=== PATIENT | male | born 1950 | race Caucasian/White ===

== ENCOUNTER → 2017-10-23 11:04 | Outpatient (CLI) | payer MEDICARE, OTHER, SELFPAY ==
[2017-10-23 12:08] LABS: Add Manual Diff / Slide Review NO; Basophils Percent Auto 0.8 % (0-2); Eosinophils Percent Auto 5.3 % (2-4); Hematocrit 39.3 % (41-53); Hemoglobin 13.4 g/dL (13.5-17.5); Lymphocytes Percent Auto 22.2 % (25-40); Mean Corpuscular HGB Conc 34.1 % (30-36); Mean Corpuscular Hemoglobin 32.6 PG (26-34); Mean Corpuscular Volume 95.4 fL (80-100); Monocytes Percent Auto 6.5 % (3-14); Neutrophils Absolute Auto 3300 /uL (3000-5900); Neutrophils Percent Auto 65.2 % (50-75); Platelet Count 316 X10^3/uL (150-400); Red Blood Cell Count 4.12 X10^6/uL (4.5-5.9); Red Cell Distribution Width 14.8 % (11.6-14.8); White Blood Cell Count 5.1 X10^3/uL (4.5-11.0)
[2017-10-23 12:31] LABS: Alanine Aminotransferase 29 IU/L (21-72); Albumin 4.1 g/dL (3.5-5.0); Albumin Globulin Ratio 1.6 (1.0-2.8); Alkaline Phosphatase 58 U/L (38-126); Aspartate Aminotransferase 22 IU/L (17-59); BUN Creatinine Ratio 16.7 (6-22); Bilirubin Total 0.6 mg/dL (0.2-1.3); Blood Urea Nitrogen 15 mg/dL (9-20); Calcium 9.3 mg/dL (8.4-10.2); Carbon Dioxide 31 mmol/L (22-32); Chloride 102 mmol/L (98-107); Estimated Glomerular Filt Rate > 60.0 mL/min (>60); Globulin 2.5 g/dL (1.7-4.1); Glucose 94 mg/dL (80-110); HEMOLYSIS < 15 (0-50); Sodium 141 mmol/L (137-145); Total Protein 6.6 g/dL (6.3-8.2)
[2017-10-23 12:33] LABS: C-Reactive Protein Quant < 0.5 mg/dL (<1.0)
[2017-10-23 13:03] LABS: Erythrocyte Sedimentation Rate 5 MM/HR (0-15)
== END ==
PROVIDERS: PCP Physician Assistant; Visit Provider Nurse Practitioner
DX: M05.79 Rheumatoid arthritis with rheumatoid factor of multiple sites without organ or systems involvement (principal); Z79.899 Other long term (current) drug therapy
CPT/HCPCS: 36415; 80053; 85025; 85651; 86140

== ENCOUNTER → 2018-01-16 11:56 | Outpatient (CLI) | payer MEDICARE, OTHER, SELFPAY ==
[2018-01-16 12:49] LABS: Add Manual Diff / Slide Review NO; Eosinophils Percent Auto 2.8 % (2-4); Hematocrit 40.2 % (41-53); Hemoglobin 13.5 g/dL (13.5-17.5); Lymphocytes Percent Auto 19.1 % (25-40); Mean Corpuscular HGB Conc 33.5 % (30-36); Mean Corpuscular Hemoglobin 32.3 PG (26-34); Mean Corpuscular Volume 96.5 fL (80-100); Monocytes Percent Auto 5.4 % (3-14); Neutrophils Absolute Auto 4100 /uL (3000-5900); Neutrophils Percent Auto 71.7 % (50-75); Platelet Count 332 X10^3/uL (150-400); Red Blood Cell Count 4.17 X10^6/uL (4.5-5.9); Red Cell Distribution Width 14.7 % (11.6-14.8); White Blood Cell Count 5.7 X10^3/uL (4.5-11.0)
[2018-01-16 13:16] LABS: Erythrocyte Sedimentation Rate 6 MM/HR (0-15)
[2018-01-16 13:29] LABS: Alanine Aminotransferase 26 IU/L (21-72); Albumin 4.1 g/dL (3.5-5.0); Albumin Globulin Ratio 1.6 (1.0-2.8); Alkaline Phosphatase 60 U/L (38-126); Aspartate Aminotransferase 20 IU/L (17-59); Bilirubin Total 0.5 mg/dL (0.2-1.3); Blood Urea Nitrogen 18 mg/dL (9-20); Calcium 9.2 mg/dL (8.4-10.2); Carbon Dioxide 29 mmol/L (22-32); Chloride 103 mmol/L (98-107); Estimated Glomerular Filt Rate > 60.0 mL/min (>60); Globulin 2.6 g/dL (1.7-4.1); Glucose 87 mg/dL (80-110); HEMOLYSIS 15 (0-50); Sodium 142 mmol/L (137-145); Total Protein 6.7 g/dL (6.3-8.2)
[2018-01-16 13:31] LABS: C-Reactive Protein Quant < 0.5 mg/dL (<1.0)
== END ==
PROVIDERS: PCP Physician Assistant; Visit Provider Nurse Practitioner
DX: M05.79 Rheumatoid arthritis with rheumatoid factor of multiple sites without organ or systems involvement (principal); Z79.899 Other long term (current) drug therapy
CPT/HCPCS: 36415; 80053; 85025; 85651; 86140

== ENCOUNTER → 2018-05-01 09:14 | Outpatient (CLI) | payer MEDICARE, OTHER, SELFPAY ==
[2018-05-01 10:55] LABS: Alanine Aminotransferase 26 IU/L (21-72); Albumin 4.3 g/dL (3.5-5.0); Albumin Globulin Ratio 1.3 (1.0-2.8); Alkaline Phosphatase 73 U/L (38-126); Aspartate Aminotransferase 22 IU/L (17-59); Bilirubin Total 0.7 mg/dL (0.2-1.3); Blood Urea Nitrogen 20 mg/dL (9-20); C-Reactive Protein Quant 0.5 mg/dL (<1.0); Carbon Dioxide 28 mmol/L (22-32); Chloride 98 mmol/L (98-107); Estimated Glomerular Filt Rate > 60.0 mL/min (>60); Globulin 3.3 g/dL (1.7-4.1); Glucose 101 mg/dL (80-110); HEMOLYSIS < 15 (0-50); Potassium 4.3 mmol/L (3.4-5.1); Sodium 135 mmol/L (137-145); Total Protein 7.6 g/dL (6.3-8.2)
[2018-05-01 11:00] LABS: Add Manual Diff / Slide Review NO; Basophils Absolute Auto 100 /uL (0-100); Basophils Percent Auto 0.6 % (0-2); Eosinophils Absolute Auto 200 /uL (0-450); Eosinophils Percent Auto 2.2 % (2-4); Hematocrit 43.4 % (41-53); Hemoglobin 14.6 g/dL (13.5-17.5); Lymphocytes Absolute Auto 1200 /uL (1100-4500); Lymphocytes Percent Auto 12.8 % (25-40); Mean Corpuscular HGB Conc 33.6 % (30-36); Mean Corpuscular Hemoglobin 32.4 PG (26-34); Mean Corpuscular Volume 96.5 fL (80-100); Monocytes Absolute Auto 700 /uL (0-900); Monocytes Percent Auto 7.2 % (3-14); Neutrophils Absolute Auto 7000 /uL (1500-7000); Neutrophils Percent Auto 77.2 % (50-75); Platelet Count 325 X10^3/uL (150-400); Red Cell Distribution Width 14.7 % (11.6-14.8)
[2018-05-01 11:24] LABS: Erythrocyte Sedimentation Rate 9 MM/HR (0-15)
== END ==
PROVIDERS: PCP Physician Assistant; Visit Provider Internal Medicine Rheumatology
DX: Z79.899 Other long term (current) drug therapy (principal); M05.79 Rheumatoid arthritis with rheumatoid factor of multiple sites without organ or systems involvement
CPT/HCPCS: 36415; 80053; 85025; 85651; 86140

== ENCOUNTER → 2018-08-06 11:23 | Outpatient (CLI) | payer MEDICARE, SELFPAY ==
[2018-08-06 12:32] LABS: Add Manual Diff / Slide Review NO; Basophils Absolute Auto 100 /uL (0-100); Basophils Percent Auto 1.2 % (0-2); Eosinophils Absolute Auto 200 /uL (0-450); Eosinophils Percent Auto 3.4 % (2-4); Hematocrit 40.8 % (41-53); Hemoglobin 13.8 g/dL (13.5-17.5); Lymphocytes Absolute Auto 1000 /uL (1100-4500); Lymphocytes Percent Auto 17.4 % (25-40); Mean Corpuscular HGB Conc 33.8 % (30-36); Mean Corpuscular Hemoglobin 32.2 PG (26-34); Mean Corpuscular Volume 95.4 fL (80-100); Monocytes Absolute Auto 400 /uL (0-900); Monocytes Percent Auto 6.3 % (3-14); Neutrophils Absolute Auto 4100 /uL (1500-7000); Neutrophils Percent Auto 71.7 % (50-75); Platelet Count 352 X10^3/uL (150-400); Red Blood Cell Count 4.28 X10^6/uL (4.5-5.9); Red Cell Distribution Width 14.9 % (11.6-14.8); White Blood Cell Count 5.7 X10^3/uL (4.5-11.0)
[2018-08-06 12:59] LABS: Alanine Aminotransferase 26 IU/L (21-72); Albumin 4.4 g/dL (3.5-5.0); Albumin Globulin Ratio 1.6 (1.0-2.8); Alkaline Phosphatase 81 U/L (38-126); Aspartate Aminotransferase 28 IU/L (17-59); BUN Creatinine Ratio 22.2 (6-22); Bilirubin Total 0.7 mg/dL (0.2-1.3); Blood Urea Nitrogen 20 mg/dL (9-20); Calcium 9.6 mg/dL (8.4-10.2); Carbon Dioxide 27 mmol/L (22-32); Chloride 102 mmol/L (98-107); Estimated Glomerular Filt Rate > 60.0 mL/min (>60); Globulin 2.8 g/dL (1.7-4.1); Glucose 95 mg/dL (80-110); HEMOLYSIS < 15 (0-50); Potassium 4.9 mmol/L (3.4-5.1); Sodium 137 mmol/L (137-145); Total Protein 7.2 g/dL (6.3-8.2)
[2018-08-06 13:00] LABS: C-Reactive Protein Quant < 0.5 mg/dL (<1.0)
[2018-08-06 13:10] LABS: Erythrocyte Sedimentation Rate 8 MM/HR (0-15)
== END ==
PROVIDERS: PCP Physician Assistant; Visit Provider Internal Medicine Rheumatology
DX: Z79.899 Other long term (current) drug therapy (principal); M05.79 Rheumatoid arthritis with rheumatoid factor of multiple sites without organ or systems involvement
CPT/HCPCS: 36415; 80053; 85025; 85651; 86140

== ENCOUNTER → 2018-10-27 09:32 | Outpatient (CLI) | payer MEDICARE, SELFPAY ==
[2018-10-27 10:58] LABS: Add Manual Diff / Slide Review NO; Basophils Absolute Auto 100 /uL (0-100); Basophils Percent Auto 1.3 % (0-2); Eosinophils Absolute Auto 200 /uL (0-450); Eosinophils Percent Auto 4.2 % (2-4); Hematocrit 39.1 % (41-53); Hemoglobin 13.6 g/dL (13.5-17.5); Lymphocytes Absolute Auto 1000 /uL (1100-4500); Lymphocytes Percent Auto 23.3 % (25-40); Mean Corpuscular HGB Conc 34.8 % (30-36); Mean Corpuscular Hemoglobin 32.9 PG (26-34); Mean Corpuscular Volume 94.6 fL (80-100); Monocytes Absolute Auto 200 /uL (0-900); Monocytes Percent Auto 5.7 % (3-14); Neutrophils Absolute Auto 2700 /uL (1500-7000); Neutrophils Percent Auto 65.5 % (50-75); Platelet Count 259 X10^3/uL (150-400); Red Blood Cell Count 4.13 X10^6/uL (4.5-5.9); Red Cell Distribution Width 14.2 % (11.6-14.8); White Blood Cell Count 4.2 X10^3/uL (4.5-11.0)
[2018-10-27 11:08] LABS: Erythrocyte Sedimentation Rate 7 MM/HR (0-15)
[2018-10-27 11:19] LABS: Alanine Aminotransferase 42 IU/L (21-72); Albumin 4.1 g/dL (3.5-5.0); Albumin Globulin Ratio 1.4 (1.0-2.8); Alkaline Phosphatase 72 U/L (38-126); Aspartate Aminotransferase 35 IU/L (17-59); BUN Creatinine Ratio 23.3 (6-22); Bilirubin Total 0.6 mg/dL (0.2-1.3); Blood Urea Nitrogen 21 mg/dL (9-20); Carbon Dioxide 28 mmol/L (22-32); Chloride 100 mmol/L (98-107); Estimated Glomerular Filt Rate > 60.0 mL/min (>60); Globulin 2.9 g/dL (1.7-4.1); Glucose 100 mg/dL (80-110); HEMOLYSIS < 15 (0-50); Potassium 4.5 mmol/L (3.4-5.1); Sodium 136 mmol/L (137-145)
[2018-10-27 11:21] LABS: C-Reactive Protein Quant < 0.5 mg/dL (<1.0)
== END ==
PROVIDERS: Family Provider Physician Assistant; PCP Physician Assistant; Visit Provider Internal Medicine Rheumatology
DX: M05.79 Rheumatoid arthritis with rheumatoid factor of multiple sites without organ or systems involvement (principal); Z79.899 Other long term (current) drug therapy
CPT/HCPCS: 36415; 80053; 85025; 85651; 86140

== ENCOUNTER → 2018-11-28 09:02 | Outpatient (CLI) | payer MEDICARE, SELFPAY ==
[2018-11-28 10:23] LABS: Add Manual Diff / Slide Review NO; Basophils Absolute Auto 0 /uL (0-100); Basophils Percent Auto 0.9 % (0-2); Eosinophils Absolute Auto 100 /uL (0-450); Eosinophils Percent Auto 2.6 % (2-4); Hematocrit 37.9 % (41-53); Hemoglobin 13.1 g/dL (13.5-17.5); Lymphocytes Absolute Auto 1200 /uL (1100-4500); Lymphocytes Percent Auto 21.8 % (25-40); Mean Corpuscular HGB Conc 34.7 % (30-36); Mean Corpuscular Hemoglobin 32.9 PG (26-34); Mean Corpuscular Volume 94.9 fL (80-100); Monocytes Absolute Auto 400 /uL (0-900); Neutrophils Absolute Auto 3700 /uL (1500-7000); Neutrophils Percent Auto 66.7 % (50-75); Platelet Count 274 X10^3/uL (150-400); Red Blood Cell Count 3.99 X10^6/uL (4.5-5.9); Red Cell Distribution Width 14.4 % (11.6-14.8); White Blood Cell Count 5.5 X10^3/uL (4.5-11.0)
== END ==
PROVIDERS: PCP Physician Assistant; Visit Provider Internal Medicine Rheumatology
DX: D72.819 Decreased white blood cell count, unspecified (principal)
CPT/HCPCS: 36415; 85025

== ENCOUNTER → 2019-01-15 12:46 | Outpatient (CLI) | payer MEDICARE, SELFPAY ==
[2019-01-15 13:21] LABS: Add Manual Diff / Slide Review NO; Basophils Absolute Auto 0 /uL (0-100); Basophils Percent Auto 0.9 % (0-2); Eosinophils Absolute Auto 200 /uL (0-450); Hematocrit 40.8 % (41-53); Lymphocytes Absolute Auto 900 /uL (1100-4500); Lymphocytes Percent Auto 17.2 % (25-40); Mean Corpuscular HGB Conc 34.3 % (30-36); Mean Corpuscular Hemoglobin 33.1 PG (26-34); Mean Corpuscular Volume 96.6 fL (80-100); Monocytes Absolute Auto 400 /uL (0-900); Monocytes Percent Auto 7.2 % (3-14); Neutrophils Absolute Auto 3800 /uL (1500-7000); Neutrophils Percent Auto 71.7 % (50-75); Platelet Count 314 X10^3/uL (150-400); Red Blood Cell Count 4.23 X10^6/uL (4.5-5.9); Red Cell Distribution Width 14.5 % (11.6-14.8); White Blood Cell Count 5.2 X10^3/uL (4.5-11.0)
== END ==
PROVIDERS: Family Provider Physician Assistant; PCP Physician Assistant; Visit Provider Internal Medicine Rheumatology
DX: D72.819 Decreased white blood cell count, unspecified (principal)
CPT/HCPCS: 36415; 85025

== ENCOUNTER → 2019-03-05 09:59 | Outpatient (CLI) | payer MEDICARE, SELFPAY ==
[2019-03-05 10:53] LABS: Add Manual Diff / Slide Review NO; Basophils Absolute Auto 0 /uL (0-100); Basophils Percent Auto 0.9 % (0-2); Eosinophils Absolute Auto 100 /uL (0-450); Eosinophils Percent Auto 2.9 % (2-4); Hematocrit 37.3 % (41-53); Hemoglobin 13.2 g/dL (13.5-17.5); Lymphocytes Absolute Auto 900 /uL (1100-4500); Lymphocytes Percent Auto 19.3 % (25-40); Mean Corpuscular HGB Conc 35.3 % (30-36); Mean Corpuscular Hemoglobin 33.3 PG (26-34); Mean Corpuscular Volume 94.4 fL (80-100); Monocytes Absolute Auto 400 /uL (0-900); Monocytes Percent Auto 7.5 % (3-14); Neutrophils Absolute Auto 3300 /uL (1500-7000); Neutrophils Percent Auto 69.4 % (50-75); Platelet Count 291 X10^3/uL (150-400); Red Blood Cell Count 3.95 X10^6/uL (4.5-5.9); Red Cell Distribution Width 14.2 % (11.6-14.8); White Blood Cell Count 4.8 X10^3/uL (4.5-11.0)
[2019-03-05 11:05] LABS: Alanine Aminotransferase 19 IU/L (<50); Albumin 4.1 g/dL (3.5-5.0); Albumin Globulin Ratio 1.5 (1.0-2.8); Alkaline Phosphatase 69 U/L (38-126); Aspartate Aminotransferase 27 IU/L (17-59); BUN Creatinine Ratio 21.3 (6-22); Bilirubin Total 0.5 mg/dL (0.2-1.3); Blood Urea Nitrogen 17 mg/dL (9-20); Calcium 9.3 mg/dL (8.4-10.2); Carbon Dioxide 28 mmol/L (22-32); Chloride 101 mmol/L (98-107); Estimated Glomerular Filt Rate > 60.0 mL/min (>60); Globulin 2.8 g/dL (1.7-4.1); Glucose 93 mg/dL (80-110); HEMOLYSIS < 15 (0-50); Potassium 4.3 mmol/L (3.4-5.1); Sodium 137 mmol/L (137-145); Total Protein 6.9 g/dL (6.3-8.2)
[2019-03-05 11:07] LABS: Erythrocyte Sedimentation Rate 8 MM/HR (0-15)
[2019-03-05 11:12] LABS: C-Reactive Protein Quant < 0.5 mg/dL (<1.0)
== END ==
PROVIDERS: PCP Physician Assistant; Visit Provider Internal Medicine Rheumatology
DX: M06.9 Rheumatoid arthritis, unspecified (principal)
CPT/HCPCS: 36415; 80053; 85025; 85651; 86140

== ENCOUNTER → 2019-05-08 09:43 | Outpatient (CLI) | payer MEDICARE, SELFPAY ==
[2019-05-08 10:06] LABS: Add Manual Diff / Slide Review NO; Basophils Absolute Auto 0 /uL (0-100); Eosinophils Absolute Auto 200 /uL (0-450); Eosinophils Percent Auto 4.6 % (2-4); Hematocrit 39.8 % (41-53); Hemoglobin 13.5 g/dL (13.5-17.5); Lymphocytes Absolute Auto 1000 /uL (1100-4500); Mean Corpuscular Hemoglobin 32.6 PG (26-34); Monocytes Absolute Auto 300 /uL (0-900); Monocytes Percent Auto 7.4 % (3-14); Neutrophils Absolute Auto 2900 /uL (1500-7000); Platelet Count 276 X10^3/uL (150-400); Red Blood Cell Count 4.14 X10^6/uL (4.5-5.9); Red Cell Distribution Width 14.1 % (11.6-14.8); White Blood Cell Count 4.5 X10^3/uL (4.5-11.0)
[2019-05-08 10:22] LABS: Alanine Aminotransferase 17 IU/L (<50); Albumin 4.3 g/dL (3.5-5.0); Albumin Globulin Ratio 1.4 (1.0-2.8); Alkaline Phosphatase 72 U/L (38-126); Aspartate Aminotransferase 25 IU/L (17-59); BUN Creatinine Ratio 25.9 (6-22); Bilirubin Total 0.5 mg/dL (0.2-1.3); Blood Urea Nitrogen 22 mg/dL (9-20); C-Reactive Protein Quant < 0.5 mg/dL (<1.0); Calcium 9.2 mg/dL (8.4-10.2); Carbon Dioxide 28 mmol/L (22-32); Chloride 102 mmol/L (98-107); Estimated Glomerular Filt Rate > 60.0 mL/min (>60); Globulin 3.1 g/dL (1.7-4.1); Glucose 102 mg/dL (80-110); HEMOLYSIS < 15 (0-50); Potassium 4.3 mmol/L (3.4-5.1); Sodium 136 mmol/L (137-145); Total Protein 7.4 g/dL (6.3-8.2)
[2019-05-08 10:23] LABS: Erythrocyte Sedimentation Rate 7 MM/HR (0-15)
== END ==
PROVIDERS: PCP Physician Assistant; Referring Provider Internal Medicine Rheumatology; Visit Provider Internal Medicine Rheumatology
DX: Z79.899 Other long term (current) drug therapy (principal); M05.39 Rheumatoid heart disease with rheumatoid arthritis of multiple sites
CPT/HCPCS: 36415; 80053; 85025; 85651; 86140

== ENCOUNTER → 2019-10-27 11:04 | Outpatient (CLI) | payer MEDICARE, SELFPAY ==
[2019-10-27 13:27] LABS: Add Manual Diff / Slide Review NO; Basophils Absolute Auto 100 /uL (0-100); Basophils Percent Auto 0.9 % (0-2); Eosinophils Absolute Auto 200 /uL (0-450); Eosinophils Percent Auto 3.4 % (2-4); Hematocrit 38.6 % (41-53); Hemoglobin 13.2 g/dL (13.5-17.5); Lymphocytes Absolute Auto 1200 /uL (1100-4500); Lymphocytes Percent Auto 20.1 % (25-40); Mean Corpuscular Volume 96.8 fL (80-100); Monocytes Absolute Auto 400 /uL (0-900); Monocytes Percent Auto 6.5 % (3-14); Neutrophils Absolute Auto 4100 /uL (1500-7000); Neutrophils Percent Auto 69.1 % (50-75); Platelet Count 298 X10^3/uL (150-400); Red Blood Cell Count 3.99 X10^6/uL (4.5-5.9); White Blood Cell Count 5.9 X10^3/uL (4.5-11.0)
[2019-10-27 13:53] LABS: Erythrocyte Sedimentation Rate 7 MM/HR (0-15)
[2019-10-27 14:03] LABS: Alanine Aminotransferase 18 IU/L (<50); Albumin 4.2 g/dL (3.5-5.0); Albumin Globulin Ratio 1.8 (1.0-2.8); Alkaline Phosphatase 86 U/L (38-126); Aspartate Aminotransferase 25 IU/L (17-59); BUN Creatinine Ratio 17.8 (6-22); Bilirubin Total 0.5 mg/dL (0.2-1.3); Blood Urea Nitrogen 18 mg/dL (9-20); Calcium 9.4 mg/dL (8.4-10.2); Carbon Dioxide 30 mmol/L (22-32); Chloride 101 mmol/L (98-107); Estimated Glomerular Filt Rate > 60.0 mL/min (>60); Globulin 2.4 g/dL (1.7-4.1); Glucose 107 mg/dL (80-110); HEMOLYSIS < 15 (0-50); Potassium 4.7 mmol/L (3.4-5.1); Sodium 138 mmol/L (137-145); Total Protein 6.6 g/dL (6.3-8.2)
[2019-10-27 14:09] LABS: C-Reactive Protein Quant < 0.5 mg/dL (<1.0)
== END ==
PROVIDERS: PCP Physician Assistant; Referring Provider Internal Medicine Rheumatology; Visit Provider Internal Medicine Rheumatology
DX: M05.79 Rheumatoid arthritis with rheumatoid factor of multiple sites without organ or systems involvement (principal)
CPT/HCPCS: 36415; 80053; 85025; 85651; 86140

== ENCOUNTER → 2020-01-26 11:47 | Outpatient (CLI) | payer MEDICARE, SELFPAY ==
[2020-01-26 12:30] LABS: Add Manual Diff / Slide Review NO; Basophils Absolute Auto 0 /uL (0-100); Basophils Percent Auto 0.8 % (0-2); Eosinophils Absolute Auto 200 /uL (0-450); Eosinophils Percent Auto 3.4 % (2-4); Hematocrit 41.4 % (41-53); Hemoglobin 13.9 g/dL (13.5-17.5); Lymphocytes Absolute Auto 1300 /uL (1100-4500); Lymphocytes Percent Auto 24.4 % (25-40); Mean Corpuscular HGB Conc 33.6 % (30-36); Mean Corpuscular Hemoglobin 32.8 PG (26-34); Mean Corpuscular Volume 97.6 fL (80-100); Monocytes Absolute Auto 400 /uL (0-900); Monocytes Percent Auto 8.1 % (3-14); Neutrophils Absolute Auto 3500 /uL (1500-7000); Neutrophils Percent Auto 63.3 % (50-75); Platelet Count 313 X10^3/uL (150-400); Red Blood Cell Count 4.24 X10^6/uL (4.5-5.9); Red Cell Distribution Width 14.4 % (11.6-14.8); White Blood Cell Count 5.5 X10^3/uL (4.5-11.0)
[2020-01-26 12:53] LABS: Erythrocyte Sedimentation Rate 10 MM/HR (0-15)
[2020-01-26 13:06] LABS: Alanine Aminotransferase 22 IU/L (<50); Albumin 4.5 g/dL (3.5-5.0); Albumin Globulin Ratio 1.5 (1.0-2.8); Alkaline Phosphatase 81 U/L (38-126); Aspartate Aminotransferase 29 IU/L (17-59); BUN Creatinine Ratio 19.8 (6-22); Bilirubin Total 0.6 mg/dL (0.2-1.3); Blood Urea Nitrogen 18 mg/dL (9-20); Calcium 9.3 mg/dL (8.4-10.2); Carbon Dioxide 32 mmol/L (22-32); Chloride 99 mmol/L (98-107); Estimated Glomerular Filt Rate > 60.0 mL/min (>60); Glucose 105 mg/dL (80-110); HEMOLYSIS < 15 (0-50); Potassium 4.1 mmol/L (3.4-5.1); Sodium 136 mmol/L (137-145); Total Protein 7.5 g/dL (6.3-8.2)
[2020-01-26 13:17] LABS: C-Reactive Protein Quant < 0.5 mg/dL (<1.0)
== END ==
PROVIDERS: PCP Physician Assistant; Referring Provider Internal Medicine Rheumatology; Visit Provider Internal Medicine Rheumatology
DX: M05.79 Rheumatoid arthritis with rheumatoid factor of multiple sites without organ or systems involvement (principal)
CPT/HCPCS: 36415; 80053; 85025; 85651; 86140

== ENCOUNTER → 2020-04-23 10:22 | Outpatient (CLI) | payer MEDICARE, SELFPAY ==
[2020-04-23 11:55] LABS: Add Manual Diff / Slide Review NO; Basophils Absolute Auto 100 /uL (0-100); Basophils Percent Auto 0.9 % (0-2); Eosinophils Absolute Auto 200 /uL (0-450); Eosinophils Percent Auto 3.5 % (2-4); Hematocrit 39.6 % (41-53); Hemoglobin 13.4 g/dL (13.5-17.5); Lymphocytes Absolute Auto 1000 /uL (1100-4500); Lymphocytes Percent Auto 16.8 % (25-40); Mean Corpuscular HGB Conc 33.9 % (30-36); Mean Corpuscular Hemoglobin 32.9 PG (26-34); Mean Corpuscular Volume 97.1 fL (80-100); Monocytes Absolute Auto 400 /uL (0-900); Monocytes Percent Auto 7.2 % (3-14); Neutrophils Absolute Auto 4300 /uL (1500-7000); Neutrophils Percent Auto 71.6 % (50-75); Platelet Count 301 X10^3/uL (150-400); Red Blood Cell Count 4.07 X10^6/uL (4.5-5.9); White Blood Cell Count 6.1 X10^3/uL (4.5-11.0)
[2020-04-23 12:22] LABS: Alanine Aminotransferase 20 IU/L (<50); Albumin 4.5 g/dL (3.5-5.0); Albumin Globulin Ratio 1.9 (1.0-2.8); Alkaline Phosphatase 84 U/L (38-126); Aspartate Aminotransferase 29 IU/L (17-59); BUN Creatinine Ratio 21.5 (6-22); Bilirubin Total 0.5 mg/dL (0.2-1.3); Blood Urea Nitrogen 17 mg/dL (9-20); Calcium 9.3 mg/dL (8.4-10.2); Carbon Dioxide 29 mmol/L (22-32); Chloride 101 mmol/L (98-107); Estimated Glomerular Filt Rate > 60.0 mL/min (>60); Globulin 2.4 g/dL (1.7-4.1); Glucose 94 mg/dL (80-110); HEMOLYSIS < 15 (0-50); Potassium 4.4 mmol/L (3.4-5.1); Sodium 136 mmol/L (137-145); Total Protein 6.9 g/dL (6.3-8.2)
[2020-04-23 12:28] LABS: C-Reactive Protein Quant < 0.5 mg/dL (<1.0)
[2020-04-23 12:44] LABS: Erythrocyte Sedimentation Rate 10 MM/HR (0-15)
== END ==
PROVIDERS: PCP Physician Assistant; Referring Provider Internal Medicine Rheumatology; Visit Provider Internal Medicine Rheumatology
DX: M05.79 Rheumatoid arthritis with rheumatoid factor of multiple sites without organ or systems involvement (principal)
CPT/HCPCS: 36415; 80053; 85025; 85651; 86140

== ENCOUNTER 2020-08-21 17:32 | Emergency (ER) | payer MEDICARE, SELFPAY ==
[2020-08-21] VITALS (41 sets, daily range): BP systolic 71–129; BP diastolic 43–76; PULSE 55–81; RESP 15–32; TEMP 36.6; O2SAT 95–100
--- NOTE | 2020-08-21 17:49 | DI.RAD.S_ITS ---
PROCEDURE: XR HIP W PEL IF DONE RT 2V INDICATIONS: fall pain TECHNIQUE: AP pelvis with lateral view(s) of the right hip(s). COMPARISON: [facility], CT, CT ABDOMEN PELVIS W CON, 08/21/2020, 18:25. FINDINGS: Bones: Lucency in the superior aspect of the acetabulum consistent with fracture. This was better seen on the comparison CT. Pelvic ring appears intact. No suspicious bony lesions. Soft tissues: The visualized bowel gas pattern is normal. No suspicious soft tissue calcifications. Partially opacified ureters are noted related to a recent contrast enhanced CT. IMPRESSION: No fracture or dislocation. The right acetabular fracture is not well seen on this radiograph. Dictated by: Lowell Nunez M.D. on 08/21/2020 at 19:07 Approved by: Lowell uNnez M.D. on 08/21/2020 at 19:09
[2020-08-21 17:59] LABS: Add Manual Diff / Slide Review NO; Basophils Absolute Auto 100 /uL (0-100); Basophils Percent Auto 0.6 % (0-2); Eosinophils Absolute Auto 200 /uL (0-450); Hematocrit 39.7 % (41-53); Hemoglobin 13.1 g/dL (13.5-17.5); Lymphocytes Absolute Auto 2000 /uL (1100-4500); Lymphocytes Percent Auto 21.2 % (25-40); Mean Corpuscular HGB Conc 32.9 % (30-36); Mean Corpuscular Hemoglobin 32.1 PG (26-34); Mean Corpuscular Volume 97.7 fL (80-100); Monocytes Absolute Auto 500 /uL (0-900); Monocytes Percent Auto 5.4 % (3-14); Neutrophils Absolute Auto 6500 /uL (1500-7000); Neutrophils Percent Auto 70.8 % (50-75); Platelet Count 296 X10^3/uL (150-400); Red Blood Cell Count 4.06 X10^6/uL (4.5-5.9); Red Cell Distribution Width 14.5 % (11.6-14.8); White Blood Cell Count 9.2 X10^3/uL (4.5-11.0)
[2020-08-21] MEDS: SODIUM CHLORIDE 0.9% 1,000 ML 1000 ML IV (18:05)
[2020-08-21 18:10] LABS: Alanine Aminotransferase 25 IU/L (<50); Albumin Globulin Ratio 1.5 (1.0-2.8); Alkaline Phosphatase 72 U/L (38-126); Aspartate Aminotransferase 32 IU/L (17-59); BUN Creatinine Ratio 22.1 (6-22); Bilirubin Total 0.3 mg/dL (0.2-1.3); Blood Urea Nitrogen 25 mg/dL (9-20); Calcium 9.4 mg/dL (8.4-10.2); Carbon Dioxide 25 mmol/L (22-32); Chloride 105 mmol/L (98-107); Creatine Kinase 165 U/L (55-170); Estimated Glomerular Filt Rate > 60.0 mL/min (>60); Globulin 2.7 g/dL (1.7-4.1); Glucose 111 mg/dL (80-110); HEMOLYSIS < 15 (0-50); Potassium 4.2 mmol/L (3.4-5.1); Sodium 137 mmol/L (137-145); Total Protein 6.7 g/dL (6.3-8.2)
--- NOTE | 2020-08-21 18:10 | DI.CT.S_ITS ---
PROCEDURE: CT ABDOMEN PELVIS W CON INDICATIONS: Fall. Anticoagulated.Abd and low back pain. TECHNIQUE: After the administration of intravenous contrast, axial sections acquired from the lung bases to the pubic symphysis. Coronal and sagittal reformats were performed. For radiation dose reduction, the following was used: automated exposure control, adjustment of mA and/or kV according to patient size. COMPARISON: [facility], CR, XR HIP W PEL IF DONE RT 2V, 08/21/2020, 18:20. FINDINGS: Image quality: Excellent. Lung bases: There is a 4 mm ground-glass nodule in the right middle lobe (series 3, image 4). Bibasilar atelectasis. Small hiatal hernia. Heart: No significant findings. ABDOMEN: Liver: Hepatic hypodensities in liver are most likely cysts. Gallbladder: Unremarkable. Biliary ducts: Unremarkable. Pancreas: Unremarkable. Spleen: Unremarkable. Adrenal Glands: Bilateral adrenal thickening. There is a 1.2 cm left adrenal nodule.. Kidneys and Ureters: There is a large simple appearing cyst in the superior pole of the left kidney measuring 10.4 cm x 9.9 cm x 9.0 cm. Stomach and Bowel: Mild diverticulosis without diverticulitis. Stomach, small bowel loops, and colon are normal in caliber. A large amount of stool in colon. Peritoneum: No abnormal intraperitoneal fluid. No free air. Ventral Wall: No hernias. Abdominal Nodes: No retroperitoneal or mesenteric adenopathy by size criteria. Vessels: Aorta and inferior vena cava are normal in size. Moderate atherosclerotic calcifications. There is a large right common iliac artery aneurysm measuring 3.5 cm in diameter. PELVIS: Pelvic Organs: Prostate is enlarged. Bladder: Bladder wall appears mildly thickened, likely secondary to inadequate distention. Pelvic Nodes: No enlarged lymph nodes. Miscellaneous: There is a right inguinal hernia containing loop of small intestine. Bones: Nondisplaced right acetabular fracture involving the anterior column and the acetabular roof. Degenerative changes in lumbar spine. IMPRESSION: 1. There is a right inguinal hernia containing segment of small intestine. No definitive CT findings to suggest small bowel obstruction. 2. A large simple appearing cyst in the superior pole of the left kidney measuring 10.4 x 9.9 x 9.0 cm. 3. There is a nondisplaced right acetabular fracture involving the anterior column and the acetabular roof. 4. A large right common iliac artery aneurysm measuring 3.5 cm. 5. A 4 mm nodule in the right middle lobe. Please see enclosed follow-up recommendation. 6. No intra-abdominal or pelvic hematoma. 7. A large amount of stool in colon. Fleischner Society criteria for SOLID lung nodule followup. Nodule size (mm)Low-risk patientHigh-risk patient?4No follow-up neededFollow-up at 12 mo; if no change, no further follow-up>[id number] CT at 12 mo; if no change, no further follow-up needed.Initial follow-up CT at 6-12 mo, then 18-24 mo if no change. >6-8Initial follow-up CT at 6-12 mo, then 18-24 mo if no change. Initial follow-up CT at 3-6 mo, then 9-12 mo and 24 mo if no change. >8Follow-up CT at 3, 9, 24 mo. Or PET and/or biopsy.Same as for low-risk pts. Fleischner Society criteria for SUB-SOLID lung nodule followup. Solitary pure ground-glass nodules5 mm or lessNo followup needed. >5 mm3 mo follow-up CT to confirm persistence. Then annual CT for 3 years. Part-solid nodules3 mo follow-up CT to confirm persistence. If persistent with solid component <5 mm, annual CT for at least 3 years. If solid component is 5 mm or more, biopsy or surgical resection. Consider PET-CT for lesions > 10 mm. Multiple sub-solid nodulesPure ground glass nodules [address] at 2 and 4 years. Pure ground glass nodules >5 mm without dominant lesion. [address] to confirm persistence, then annual followup CT for at least 3 years. Dominant nodule(s) with part-solid or solid component. [address] to confirm persistence. If persistent, consider biopsy or surgical resection, tiffanie if lesions have >5 mm solid component. Dictated by: Lowell Nunez M.D. on 08/21/2020 at 18:50 Approved by: Lowell Nunez M.D. on 08/21/2020 at 19:02
--- NOTE | 2020-08-21 18:12 | ED.FALL ---
HPI - Fall General Chief Complaint: Trauma Stated Complaint: Fall, Right Hip Pain Time Seen by Provider: 08/21/20 17:49 Source: patient Mode of arrival: Wheelchair History of Present Illness HPI Narrative: The patient is anticoagulated with Xarelto for paroxysmal AFib. He has also medications for asthma, hyperlipidemia and hypertension. He was standing on a counter at home, working on an air conditioning. He fell backwards to the floor. He landed on the buttock/lumbar area, but the air conditioning unit impacted him on the right anterior hip area. The patient is alert, unclear historian. There was no head, neck, chest or torso injury. He has no chest pain, dyspnea or hemoptysis. He has vague right lower abdominal pain. He has greater right hip and right lower back pain. He has no pain in the extremities, with normal range of motion. Although we, he was ambulatory after the fall. He denies recent illness. Has received COVID-19 vaccine. Related Data Home Medications Medication Instructions Recorded Confirmed methotrexate sodium 2.5 mg tablet 20 mg PO QWEEK #0 tab 12/06/15 05/08/18 diltiazem HCl 120 mg 120 mg PO QDAY #0 10/16/16 05/08/18 capsule,extended release 24 hr (Cartia XT) [FOLIC ACID] 20 mg PO QDAY #0 05/06/17 05/08/18 [VITAMIN D3] 1,000 iu PO QDAY #0 05/06/17 05/08/18 budesonide 90 mcg/actuation breath 1 inhalation INHALATION BID 04/08/18 05/08/18 activated powder inhaler rivaroxaban 20 mg tablet (Xarelto) 20 mg PO DAILY 04/08/18 05/08/18 flecainide 50 mg tablet 50 mg PO Q12H 06/17/19 Previous Rx's Medication Instructions Recorded albuterol sulfate 90 mcg/actuation 2 puff INH SEE INSTRUCTIONS PRN #1 10/22/16 aerosol inhaler (Ventolin HFA) inh atorvastatin 20 mg tablet (Lipitor) 20 mg PO HS #90 tab 10/22/16 lisinopril 10 mg tablet 10 mg PO QDAY #90 tab 05/06/17 Allergies Allergy/AdvReac Type Severity Reaction Status Date / Time No Known Drug Allergies Allergy Unverified 05/08/18 14:15 denies dizziness or syncope Most Recent Cardiac Tests: No Data to Display Review of Systems Constitutional Constitutional: Reports as per HPI Comments: No recent illness. Injuries are focused around the right hip area as described in HPI. Eyes Eyes: Denies change in vision ENT Ears, Nose, Mouth, and Throat: Denies vertigo and Denies dizziness Comments: No head or neck complaints. No head or neck pain. Cardiovascular Cardiovascular: Denies chest pain, Denies syncope, Denies rapid heart rate, Reports lightheadedness and Denies dyspnea Respiratory Respiratory: Denies chest congestion, Denies cough, Denies hemoptysis and Denies dyspnea Gastrointestinal Gastrointestinal: Denies nausea and Denies vomiting Comments: Vague like lower abdominal pain is noted HPI put Genitourinary Comments: No genital injury. Musculoskeletal Comments: Right hip and low back pain. Integumentary/Breasts Skin/Breast: Denies change in pigmentation, Denies rash and Denies sores Neurologic Neurologic: Denies confusion, Denies vertigo, Denies dizziness, Denies syncope, Denies localized weakness and Denies sensory deficit Psychiatric Psychiatric: Denies confusion Hematologic/Lymphatic On Anticoagulants: Yes Allergic/Immunologic Allergic/Immunologic: Reports system reviewed and no additional complaints, except as documented Patient History Family History Father Rheumatoid arthritis, involving unspecified site, unspecified rheumatoid factor presence Gout, unspecified cause, unspecified chronicity, unspecified site Social History Smoking Status: Never smoker Smoking Status: Never smoker Family History Father Rheumatoid arthritis, involving unspecified site, unspecified rheumatoid factor presence Gout, unspecified cause, unspecified chronicity, unspecified site Social History Smoking Status: Never smoker Family History Father Rheumatoid arthritis, involving unspecified site, unspecified rheumatoid factor presence Gout, unspecified cause, unspecified chronicity, unspecified site Social History Smoking Status: Never smoker Exam Initial Vital Signs Initial Vital Signs: Vital Signs Temperature 97.9 F 08/21/20 17:36 Pulse Rate 55 L 08/21/20 17:36 Respiratory Rate 20 08/21/20 17:36 Blood Pressure 71/43 L 08/21/20 17:36 Pulse Oximetry 97 08/21/20 17:36 Const General: cooperative, healthy appearing, comfortable, well groomed and other (Oriented to person, place and time.) [facility] Head: normal to inspection, normocephalic and atraumatic Mouth: oral mucosae normal Eyes General: appearance normal, both eyes and all related structures Neck Neck: normal visual inspection, No lymphadenopathy and No tender Chest Chest: normal inspection of the chest and No tenderness Resp Effort & Inspection: normal respiratory effort Auscultation: clear to auscultation bilaterally Cardio Rate: regular rate Rhythm: regular rhythm Heart Sounds: S1 normal, S2 normal, no gallops and no murmurs GI Inspection: normal to inspection and non-distended Percussion: normal to percussion Auscultation: normal bowel sounds and other (Mild RLQ tenderness. No distension. No guarding rebound. ) Penis: normal penis Scrotum: scrotum normal Back/Spine/Pelvis Back: normal to inspection Cervical Spine: other (Slight tenderness at the right SI joint, no palpable deformity.) Skin General: no rashes or lesions noted Neuro General: patient alert, patient awake, patient oriented x3 and no focal motor deficits Extrem General: normal to inspection Other: Upper extremities are atraumatic. Right hip pain, no palpable deformity. Right hip motion is normal. Left hip is normal. Full range of motion throughout the lower extremities. Lower extremities are neurovascularly intact. Psych Appearance: well kempt Mental Status: mental status grossly normal Course Course Course Narrative: The patient was hypertensive at triage, he has been normotensive since been placed on a gurney in the ER. There is no suggestion of head, neck or torso injury. Pain is focused to landing on his buttocks, with injury to the right hip region. The initial x-ray of the right hip did not well revealed the acetabular fracture that was later noted. Due to his anticoagulation, and the concern for internal bleeding with the right pelvic discomfort CT was obtained. There is a nondisplaced right acetabular fracture, no AC hematoma or active bleeding. Additional findings include a right common iliac artery aneurysm 3.5 cm, a large right renal cyst, right inguinal hernia, and a large right renal cyst, and a RML pulmonary nodule. Specifically, there is no evidence of hematoma in the abdomen or pelvis. Initial CBC is repeated, blood counts are stable. His vitals are stable. He has required medications for pain. He has been kept quietly in bed until CT results were reviewed with Radiology, clearing concerns for active bleeding or hematoma formation. The patient's manage was discussed with the local on-call orthopedic surgeon, his needs are beyond this facility. Care was discussed with Dr. Martines, he ER at [facility]. The patient has been accepted in transfer to [facility]. Labs and radiology data has been forwarded. Orders Ordered: ED Orders 08/21/20 17:49 XR hip w pel if done RT 2V Stat 08/21/20 17:50 Complete Blood Count AUTO DIFF Stat Comprehensive Metabolic Panel Stat Troponin & CK Cardiac Panel Stat Type and Screen Stat 08/21/20 17:58 EKG-12 Lead Stat 08/21/20 18:05 PT [Prothrombin Time INR] Stat Partial Thromboplastin Time Stat 08/21/20 18:10 CT abdomen pelvis w con Stat 08/21/20 19:00 Complete Blood Count AUTO DIFF Stat 08/21/20 19:12 COVID19 -Nasal swab/Pre-Proc Stat Urine Culture Stat Urine Microscopic Stat Acetaminophen (Acetaminophen 325 Mg Tablet) 650 mg PO Q4HR PRN PRN Reason: Fever/Mild Pain (1-3) Last Admin: 08/21/20 20:26 Dose: 650 mg Documented by: JENELLE Sodium Chloride (Normal Saline 0.9%) 1,000 mls @ 150 mls/hr IV CONT WARREN Last Admin: 08/21/20 19:05 Dose: 150 mls/hr Documented by: WINIFRED Discontinued Medications Fentanyl (Fentanyl 100 Mcg/2 Ml Inj) 50 mcg IV NOW ONE Stop: 08/21/20 18:46 Last Admin: 08/21/20 18:55 Dose: 50 mcg Documented by: WINIFRED Sodium Chloride (Normal Saline 0.9%) 1,000 mls @ 1,000 mls/hr IV BOLUS ONE Stop: 08/21/20 18:48 Last Infusion: 08/21/20 19:06 Dose: 0 mls/hr Documented by: Admin: 08/21/20 18:05 Dose: 1,000 mls/hr Documented by: WINIFRED Vital Signs Vital signs: Vital Signs - 8 hr 08/21/20 17:36 08/21/20 17:54 08/21/20 17:55 Temperature 97.9 F Pulse Rate 55 L 59 L 57 L Respiratory Rate 20 24 21 Blood Pressure 71/43 L 101/59 L 101/59 L Pulse Oximetry 97 99 100 08/21/20 18:00 08/21/20 18:05 08/21/20 18:10 Temperature Pulse Rate 60 59 L 57 L Respiratory Rate 24 22 21 Blood Pressure 102/64 98/60 101/63 Pulse Oximetry 100 100 100 08/21/20 18:15 08/21/20 18:30 08/21/20 18:32 Temperature Pulse Rate 60 59 L 62 Respiratory Rate 22 17 Blood Pressure 122/67 Pulse Oximetry 95 98 08/21/20 18:35 08/21/20 18:40 08/21/20 18:45 Temperature Pulse Rate 62 61 61 Respiratory Rate 24 22 20 Blood Pressure 102/59 L Pulse Oximetry 98 98 98 08/21/20 18:50 08/21/20 18:55 08/21/20 19:00 Temperature Pulse Rate 65 65 64 Respiratory Rate 15 15 Blood Pressure Pulse Oximetry 97 96 95 08/21/20 19:01 08/21/20 19:05 08/21/20 19:15 Temperature Pulse Rate 65 62 63 Respiratory Rate 18 18 Blood Pressure 111/68 121/67 Pulse Oximetry 97 97 97 08/21/20 19:20 08/21/20 19:25 08/21/20 19:30 Temperature Pulse Rate 63 64 67 Respiratory Rate 22 18 24 Blood Pressure 129/72 Pulse Oximetry 97 96 97 08/21/20 19:50 08/21/20 20:00 08/21/20 20:15 Temperature Pulse Rate 68 70 68 Respiratory Rate 23 18 19 Blood Pressure 126/72 125/72 113/63 Pulse Oximetry 98 98 97 08/21/20 20:20 08/21/20 20:25 08/21/20 20:30 Temperature Pulse Rate 70 73 69 Respiratory Rate 26 H 28 H 31 H Blood Pressure Pulse Oximetry 98 97 97 08/21/20 20:35 08/21/20 20:40 08/21/20 20:45 Temperature Pulse Rate 72 70 71 Respiratory Rate 21 30 H 27 H Blood Pressure 129/76 Pulse Oximetry 97 96 98 08/21/20 20:50 08/21/20 20:55 08/21/20 21:00 Temperature Pulse Rate 75 72 70 Respiratory Rate 20 18 20 Blood Pressure 125/75 Pulse Oximetry 96 96 96 08/21/20 21:05 08/21/20 21:10 08/21/20 21:15 Temperature Pulse Rate 70 72 76 Respiratory Rate 16 18 24 Blood Pressure Pulse Oximetry 95 96 96 08/21/20 21:20 08/21/20 21:25 08/21/20 21:30 Temperature Pulse Rate 76 81 75 Respiratory Rate 25 H 25 H 32 H Blood Pressure Pulse Oximetry 97 97 97 08/21/20 21:35 08/21/20 21:45 Temperature Pulse Rate 75 75 Respiratory Rate 18 18 Blood Pressure 115/59 L Pulse Oximetry 97 97 - Fall Lab Data Result diagrams: 08/21/20 19:00 08/21/20 17:50 Labs: Lab Results 08/21/20 08/21/20 08/21/20 Range/Units 17:50 17:50 17:50 WBC 9.2 (4.5-11.0) X10^3/uL RBC 4.06 L (4.5-5.9) X10^6/uL Hgb 13.1 L (13.5-17.5) g/dL Hct 39.7 L (41-53) % MCV 97.7 (80-100) fL MCH 32.1 (26-34) PG MCHC 32.9 (30-36) % RDW 14.5 (11.6-14.8) % Plt Count 296 (150-400) X10^3/uL Neut % (Auto) 70.8 (50-75) % Lymph % (Auto) 21.2 L (25-40) % [place] % (Auto) 5.4 (3-14) % Eos % (Auto) 2.0 (2-4) % Baso % (Auto) 0.6 (0-2) % Neut # (Auto) 6500 (2311-6618) /uL Lymph # (Auto) 2000 (9628-3150) /uL [place] # (Auto) 500 (0-900) /uL Eos # (Auto) 200 (0-450) /uL Baso # (Auto) 100 (0-100) /uL PT (10.1-12.7) SECONDS INR (0.9-1.3) APTT (26.4-36.2) SECONDS Sodium 137 (137-145) mmol/L Potassium 4.2 (3.4-5.1) mmol/L Chloride 105 (98-107) mmol/L Carbon Dioxide 25 (22-32) mmol/L BUN 25 H (9-20) mg/dL Creatinine 1.13 (0.66-1.25) mg/dL Estimated GFR > 60.0 (>60) mL/min BUN/Creatinine Ratio 22.1 H (6-22) Glucose 111 H (80-110) mg/dL Calcium 9.4 (8.4-10.2) mg/dL Total Bilirubin 0.3 (0.2-1.3) mg/dL AST 32 (17-59) IU/L ALT 25 (<50) IU/L Alkaline Phosphatase 72 (38-126) U/L Total Creatine Kinase 165 (55-170) U/L CK-MB (CK-2) 3.37 H (<2.37) ng/mL CK-MB (CK-2) Rel Index 2.0 (1.5-5.0) % Troponin I 0.030 (0.01-0.034) ng/mL Total Protein 6.7 (6.3-8.2) g/dL Albumin 4.0 (3.5-5.0) g/dL Globulin 2.7 (1.7-4.1) g/dL Albumin/Globulin Ratio 1.5 (1.0-2.8) Urine RBC (0-5/HPF) Urine WBC (0-5/HPF) Amorphous Sediment Urine Bacteria (None) Hyaline Casts (None) Urine Mucus (Negative) Ur Culture Indicated? SARS-CoV-2 (PCR) (Negative) Blood Type O Positive Antibody Screen Negative 08/21/20 08/21/20 08/21/20 Range/Units 18:05 19:00 19:12 WBC 12.5 H (4.5-11.0) X10^3/uL RBC 3.61 L (4.5-5.9) X10^6/uL Hgb 11.7 L (13.5-17.5) g/dL Hct 35.3 L (41-53) % MCV 97.7 (80-100) fL MCH 32.5 (26-34) PG MCHC 33.3 (30-36) % RDW 14.3 (11.6-14.8) % Plt Count 248 (150-400) X10^3/uL Neut % (Auto) 90.4 H (50-75) % Lymph % (Auto) 6.0 L (25-40) % [place] % (Auto) 2.4 L (3-14) % Eos % (Auto) 0.7 L (2-4) % Baso % (Auto) 0.5 (0-2) % Neut # (Auto) 39180 H (3203-4552) /uL Lymph # (Auto) 700 L (6839-2040) /uL [place] # (Auto) 300 (0-900) /uL Eos # (Auto) 100 (0-450) /uL Baso # (Auto) 100 (0-100) /uL PT 14.7 H (10.1-12.7) SECONDS INR 1.3 (0.9-1.3) APTT 27 (26.4-36.2) SECONDS Sodium (137-145) mmol/L Potassium (3.4-5.1) mmol/L Chloride (98-107) mmol/L Carbon Dioxide (22-32) mmol/L BUN (9-20) mg/dL Creatinine (0.66-1.25) mg/dL Estimated GFR (>60) mL/min BUN/Creatinine Ratio (6-22) Glucose (80-110) mg/dL Calcium (8.4-10.2) mg/dL Total Bilirubin (0.2-1.3) mg/dL AST (17-59) IU/L ALT (<50) IU/L Alkaline Phosphatase (38-126) U/L Total Creatine Kinase (55-170) U/L CK-MB (CK-2) (<2.37) ng/mL CK-MB (CK-2) Rel Index (1.5-5.0) % Troponin I (0.01-0.034) ng/mL Total Protein (6.3-8.2) g/dL Albumin (3.5-5.0) g/dL Globulin (1.7-4.1) g/dL Albumin/Globulin Ratio (1.0-2.8) Urine RBC 0-1/hpf (0-5/HPF) Urine WBC 1-5/hpf (0-5/HPF) Amorphous Sediment 3+ Urine Bacteria None seen (None) Hyaline Casts 1-5/lpf (None) Urine Mucus 1+ H (Negative) Ur Culture Indicated? Specimen cultured SARS-CoV-2 (PCR) (Negative) Blood Type Antibody Screen 08/21/20 Range/Units 19:12 WBC (4.5-11.0) X10^3/uL RBC (4.5-5.9) X10^6/uL Hgb (13.5-17.5) g/dL Hct (41-53) % MCV (80-100) fL MCH (26-34) PG MCHC (30-36) % RDW (11.6-14.8) % Plt Count (150-400) X10^3/uL Neut % (Auto) (50-75) % Lymph % (Auto) (25-40) % [place] % (Auto) (3-14) % Eos % (Auto) (2-4) % Baso % (Auto) (0-2) % Neut # (Auto) (3622-7220) /uL Lymph # (Auto) (5338-3934) /uL [place] # (Auto) (0-900) /uL Eos # (Auto) (0-450) /uL Baso # (Auto) (0-100) /uL PT (10.1-12.7) SECONDS INR (0.9-1.3) APTT (26.4-36.2) SECONDS Sodium (137-145) mmol/L Potassium (3.4-5.1) mmol/L Chloride (98-107) mmol/L Carbon Dioxide (22-32) mmol/L BUN (9-20) mg/dL Creatinine (0.66-1.25) mg/dL Estimated GFR (>60) mL/min BUN/Creatinine Ratio (6-22) Glucose (80-110) mg/dL Calcium (8.4-10.2) mg/dL Total Bilirubin (0.2-1.3) mg/dL AST (17-59) IU/L ALT (<50) IU/L Alkaline Phosphatase (38-126) U/L Total Creatine Kinase (55-170) U/L CK-MB (CK-2) (<2.37) ng/mL CK-MB (CK-2) Rel Index (1.5-5.0) % Troponin I (0.01-0.034) ng/mL Total Protein (6.3-8.2) g/dL Albumin (3.5-5.0) g/dL Globulin (1.7-4.1) g/dL Albumin/Globulin Ratio (1.0-2.8) Urine RBC (0-5/HPF) Urine WBC (0-5/HPF) Amorphous Sediment Urine Bacteria (None) Hyaline Casts (None) Urine Mucus (Negative) Ur Culture Indicated? SARS-CoV-2 (PCR) Negative (Negative) Blood Type Antibody Screen Urine Dip Bedside Urine Glucose Negative Bedside Urine Bilirubin - Negative Bedside Urine Ketone - Negative Urine Specific [place] 1.030 Bedside Urine Occult Blood +/- Bedside Urine pH 6.0 Bedside Urine Protein +/- 15 Bedside Urine Urobilinogen - Negative Bedside Urine Nitrite - Negative Bedside Urine Leukocytes - Negative Esterase Imaging Data Right hip/pelvis x-ray:: Radiologist's Impression: [address] [id number] ReportSigned Patient: David Boland DMR#: [id number]: 9Acct:[id number]/Sex: 70 / MDate of Service: 08/21/20Loc: EDAccession Number: [id number] Procedure: XR hip w pel if done RT 2V Ordering Provider: Zoe Dickson D.O. PROCEDURE: XR HIP W PEL IF DONE RT 2V INDICATIONS: fall pain TECHNIQUE: AP pelvis with lateral view(s) of the right hip(s). COMPARISON: [facility], CT, CT ABDOMEN PELVIS W CON, 08/21/2020, 18:25. FINDINGS: Bones: Lucency in the superior aspect of the acetabulum consistent with fracture. This was better seen on the comparison CT. Pelvic ring appears intact. No suspicious bony lesions. Soft tissues: The visualized bowel gas pattern is normal. No suspicious soft tissue calcifications. Partially opacified ureters are noted related to a recent contrast enhanced CT. IMPRESSION: No fracture or dislocation. The right acetabular fracture is not well seen on this radiograph. Dictated by: Lowell Nunez M.D. on 08/21/2020 at 19:07 Approved by: Lowell Nunez M.D. on 08/21/2020 at 19:09 CT scan - abdomen/pelvis: Radiologist's Impression: 23 Jeremias Cross MD Find Patient Imaging - David Boland 70 M 1950 ACTIVITY DATE EXAM STATUS AUTHOR 08/21/20 18:10 Addendum Anum Nunezrico 08/21/20 17:49 Signed [facility] [place] [id number] Scan ReportAddendum Patient: David Boland DMR#: [id number]: 9Acct:[id number]/Sex: 70 / MDate of Service: 08/21/20Loc: EDAccession Number: [id number] Procedure: CT abdomen pelvis w con Ordering Provider: Jeremias Cross MD ADDENDUMThis report includes an Addendum and supersedes previous reports for this exam. PROCEDURE: CT ABDOMEN PELVIS W CON INDICATIONS: Fall. Anticoagulated.Abd and low back pain. TECHNIQUE: After the administration of intravenous contrast, axial sections acquired from the lung bases to the pubic symphysis. Coronal and sagittal reformats were performed. For radiation dose reduction, the following was used: automated exposure control, adjustment of mA and/or kV according to patient size. COMPARISON: [facility], CR, XR HIP W PEL IF DONE RT 2V, 08/21/2020, 18:20. FINDINGS: Image quality: Excellent. Lung bases: There is a 4 mm ground-glass nodule in the right middle lobe (series 3, image 4). Bibasilar atelectasis. Small hiatal hernia. Heart: No significant findings. ABDOMEN: Liver: Hepatic hypodensities in liver are most likely cysts. Gallbladder: Unremarkable. Biliary ducts: Unremarkable. Pancreas: Unremarkable. Spleen: Unremarkable. Adrenal Glands: Bilateral adrenal thickening. There is a 1.2 cm left adrenal nodule.. Kidneys and Ureters: There is a large simple appearing cyst in the superior pole of the left kidney measuring 10.4 cm x 9.9 cm x 9.0 cm. Stomach and Bowel: Mild diverticulosis without diverticulitis. Stomach, small bowel loops, and colon are normal in caliber. A large amount of stool in colon. Peritoneum: No abnormal intraperitoneal fluid. No free air. Ventral Wall: No hernias. Abdominal Nodes: No retroperitoneal or mesenteric adenopathy by size criteria. Vessels: Aorta and inferior vena cava are normal in size. Moderate atherosclerotic calcifications. There is a large right common iliac artery aneurysm measuring 3.5 cm in diameter. PELVIS: Pelvic Organs: Prostate is enlarged. Bladder: Bladder wall appears mildly thickened, likely secondary to inadequate distention. Pelvic Nodes: No enlarged lymph nodes. Miscellaneous: There is a right inguinal hernia containing loop of small intestine. Bones: Nondisplaced right acetabular fracture involving the anterior column and the acetabular roof. Degenerative changes in lumbar spine. IMPRESSION: 1. There is a right inguinal hernia containing segment of small intestine. No definitive CT findings to suggest small bowel obstruction. 2. A large simple appearing cyst in the superior pole of the left kidney measuring 10.4 x 9.9 x 9.0 cm. 3. There is a nondisplaced right acetabular fracture involving the anterior column and the acetabular roof. 4. A large right common iliac artery aneurysm measuring 3.5 cm. 5. A 4 mm nodule in the right middle lobe. Please see enclosed follow-up recommendation. 6. No intra-abdominal or pelvic hematoma. 7. A large amount of stool in colon. Fleischner Society criteria for SOLID lung nodule followup. Nodule size (mm)Low-risk patientHigh-risk patient?4No follow-up neededFollow-up at 12 mo; if no change, no further follow-up>[id number] CT at 12 mo; if no change, no further follow-up needed.Initial follow-up CT at 6-12 mo, then 18-24 mo if no change. >6-8Initial follow-up CT at 6-12 mo, then 18-24 mo if no change. Initial follow-up CT at 3-6 mo, then 9-12 mo and 24 mo if no change. >8Follow-up CT at 3, 9, 24 mo. Or PET and/or biopsy.Same as for low-risk pts. Fleischner Society criteria for SUB-SOLID lung nodule followup. Solitary pure ground-glass nodules5 mm or lessNo followup needed. >5 mm3 mo follow-up CT to confirm persistence. Then annual CT for 3 years. Part-solid nodules3 mo follow-up CT to confirm persistence. If persistent with solid component <5 mm, annual CT for at least 3 years. If solid component is 5 mm or more, biopsy or surgical resection. Consider PET-CT for lesions > 10 mm. Multiple sub-solid nodulesPure ground glass nodules [address] at 2 and 4 years. Pure ground glass nodules >5 mm without dominant lesion. [address] to confirm persistence, then annual followup CT for at least 3 years. Dominant nodule(s) with part-solid or solid component. [address] to confirm persistence. If persistent, consider biopsy or surgical resection, tiffanie if lesions have >5 mm solid component. Dictated by: Lowell Nunez M.D. on 08/21/2020 at 18:50 Approved by: Lowell Nunez M.D. on 08/21/2020 at 19:02 ADDENDUM: A small pelvic hematoma is seen around the right acetabular fracture. The result was discussed with Dr. Cross. Dictated by: Lowell Nunez M.D. on 08/21/2020 at 19:05 Approved by: Lowell Nunez M.D. on 08/21/2020 at 19:06 Addendum Dictated By:Chong Nunez MDAddendkimberly Signed By:Addendum Cosigned By:DD/ TD/TT: 08/21/2001/01/1906 PROCEDURE: CT ABDOMEN PELVIS W CON INDICATIONS: Fall. Anticoagulated.Abd and low back pain. TECHNIQUE: After the administration of intravenous contrast, axial sections acquired from the lung bases to the pubic symphysis. Coronal and sagittal reformats were performed. For radiation dose reduction, the following was used: automated exposure control, adjustment of mA and/or kV according to patient size. COMPARISON: [facility], CR, XR HIP W PEL IF DONE RT 2V, 08/21/2020, 18:20. FINDINGS: Image quality: Excellent. Lung bases: There is a 4 mm ground-glass nodule in the right middle lobe (series 3, image 4). Bibasilar atelectasis. Small hiatal hernia. Heart: No significant findings. ABDOMEN: Liver: Hepatic hypodensities in liver are most likely cysts. Gallbladder: Unremarkable. Biliary ducts: Unremarkable. Pancreas: Unremarkable. Spleen: Unremarkable. Adrenal Glands: Bilateral adrenal thickening. There is a 1.2 cm left adrenal nodule.. Kidneys and Ureters: There is a large simple appearing cyst in the superior pole of the left kidney measuring 10.4 cm x 9.9 cm x 9.0 cm. Stomach and Bowel: Mild diverticulosis without diverticulitis. Stomach, small bowel loops, and colon are normal in caliber. A large amount of stool in colon. Peritoneum: No abnormal intraperitoneal fluid. No free air. Ventral Wall: No hernias. Abdominal Nodes: No retroperitoneal or mesenteric adenopathy by size criteria. Vessels: Aorta and inferior vena cava are normal in size. Moderate atherosclerotic calcifications. There is a large right common iliac artery aneurysm measuring 3.5 cm in diameter. PELVIS: Pelvic Organs: Prostate is enlarged. Bladder: Bladder wall appears mildly thickened, likely secondary to inadequate distention. Pelvic Nodes: No enlarged lymph nodes. Miscellaneous: There is a right inguinal hernia containing loop of small intestine. Bones: Nondisplaced right acetabular fracture involving the anterior column and the acetabular roof. Degenerative changes in lumbar spine. IMPRESSION: 1. There is a right inguinal hernia containing segment of small intestine. No definitive CT findings to suggest small bowel obstruction. 2. A large simple appearing cyst in the superior pole of the left kidney measuring 10.4 x 9.9 x 9.0 cm. 3. There is a nondisplaced right acetabular fracture involving the anterior column and the acetabular roof. 4. A large right common iliac artery aneurysm measuring 3.5 cm. 5. A 4 mm nodule in the right middle lobe. Please see enclosed follow-up recommendation. 6. No intra-abdominal or pelvic hematoma. 7. A large amount of stool in colon. Fleischner Society criteria for SOLID lung nodule followup. Nodule size (mm)Low-risk patientHigh-risk patient?4No follow-up neededFollow-up at 12 mo; if no change, no further follow-up>[id number] CT at 12 mo; if no change, no further follow-up needed.Initial follow-up CT at 6-12 mo, then 18-24 mo if no change. >6-8Initial follow-up CT at 6-12 mo, then 18-24 mo if no change. Initial follow-up CT at 3-6 mo, then 9-12 mo and 24 mo if no change. >8Follow-up CT at 3, 9, 24 mo. Or PET and/or biopsy.Same as for low-risk pts. Fleischner Society criteria for SUB-SOLID lung nodule followup. Solitary pure ground-glass nodules5 mm or lessNo followup needed. >5 mm3 mo follow-up CT to confirm persistence. Then annual CT for 3 years. Part-solid nodules3 mo follow-up CT to confirm persistence. If persistent with solid component <5 mm, annual CT for at least 3 years. If solid component is 5 mm or more, biopsy or surgical resection. Consider PET-CT for lesions > 10 mm. Multiple sub-solid nodulesPure ground glass nodules [address] at 2 and 4 years. Pure ground glass nodules >5 mm without dominant lesion. [address] to confirm persistence, then annual followup CT for at least 3 years. Dominant nodule(s) with part-solid or solid component. [address] to confirm persistence. If persistent, consider biopsy or surgical resection, tiffanie if lesions have >5 mm solid component. Dictated by: Lowell Nunez M.D. on 08/21/2020 at 18:50 Approved by: Lowell Nunez M.D. on 08/21/2020 at 19:02 ECG Data Interpretation: EKG: Sinus bradycardia rate 58 beats per minute. Left axis deviation. RBBB. No significant ectopy. No acute ST T wave changes. Critical Care Time Critical Care Time Critical Care Time: Yes Total Critical Care Time: 50 Attestation: Critical care, includes initial assessment of the patient, review of EKG, lab in radiology data, clinical decision-making, and consultation. The patient and his were performed the clinical situation. Transfer was arranged as noted HPI. Discharge Plan Departure Patient Disposition: [facility] Clinical Impression: Acetabulum fracture, right, AF (paroxysmal atrial fibrillation), Aneurysm of right common iliac artery, Hypertension, Asthma, Hyperlipidemia, Renal cyst, acquired, left, Hernia, inguinal, right, Pulmonary nodule Prescriptions: No Action Xarelto 20 mg tablet 20 mg PO DAILY RF: 0 budesonide 90 mcg/actuation aerosol powdr breath activated 1 inhalation INHALATION BID RF: 0 methotrexate sodium 2.5 MG tablet 20 mg PO QWEEK Qty: 0 RF: 0 diltiazem HCl [Cartia XT] 120 MG capsule,extended release 24hr 120 mg PO QDAY Qty: 0 RF: 0 atorvastatin [Lipitor] 20 MG tablet 20 mg PO HS Qty: 90 RF: 3 albuterol sulfate [Ventolin HFA] 90 MCG/PUFF HFA aerosol inhaler 2 puff INH SEE INSTRUCTIONS PRNQty: 1 RF: 3 [VITAMIN D3] 1,000 iu PO QDAY Qty: 0 RF: 0 [FOLIC ACID] 20 mg PO QDAY Qty: 0 RF: 0 lisinopril 10 MG tablet 10 mg PO QDAY Qty: 90 RF: 3 flecainide 50 mg tablet 50 mg PO Q12H RF: 0
--- NOTE | 2020-08-21 18:13 | PC.NURSE ---
c/o pain left hip and left upper leg. No shortening, rotation of left leg. Pain is weight bearing in nature. Noted hypotention at triage. Laying down is improved.
[2020-08-21 18:25] LABS: Creatine Kinase MB 3.37 ng/mL (<2.37)
[2020-08-21 18:55] LABS: INR 1.3 (0.9-1.3); Prothrombin Time 14.7 SECONDS (10.1-12.7)
[2020-08-21] MEDS: fentaNYL 100 MCG/2 ML INJ 50 MCG IV (18:55)
[2020-08-21 18:58] LABS: PTT Partial Thromboplastin Tim 27 SECONDS (26.4-36.2)
[2020-08-21 19:03] LABS: Add Manual Diff / Slide Review NO; Basophils Absolute Auto 100 /uL (0-100); Basophils Percent Auto 0.5 % (0-2); Eosinophils Absolute Auto 100 /uL (0-450); Eosinophils Percent Auto 0.7 % (2-4); Hematocrit 35.3 % (41-53); Hemoglobin 11.7 g/dL (13.5-17.5); Lymphocytes Absolute Auto 700 /uL (1100-4500); Mean Corpuscular HGB Conc 33.3 % (30-36); Mean Corpuscular Hemoglobin 32.5 PG (26-34); Mean Corpuscular Volume 97.7 fL (80-100); Monocytes Absolute Auto 300 /uL (0-900); Monocytes Percent Auto 2.4 % (3-14); Neutrophils Absolute Auto 11300 /uL (1500-7000); Neutrophils Percent Auto 90.4 % (50-75); Platelet Count 248 X10^3/uL (150-400); Red Blood Cell Count 3.61 X10^6/uL (4.5-5.9); Red Cell Distribution Width 14.3 % (11.6-14.8); White Blood Cell Count 12.5 X10^3/uL (4.5-11.0)
[2020-08-21] MEDS: SODIUM CHLORIDE 0.9% 1,000 ML 150 ML IV (19:05)
[2020-08-21 19:18] LABS: Bacteria Urine None Seen
[2020-08-21 19:28] LABS: RBC Urine 0-1/HPF (0-5/HPF)
[2020-08-21 19:29] LABS: Amorphous Sediment Urine 3+; Culture Indicated Urine Specimen Cultured; Hyaline Casts Urine 1-5/LPF; Mucus Urine 1+ (Negative); WBC Urine 1-5/HPF (0-5/HPF)
[2020-08-21 19:33] LABS: COVID19 -Nasal RAPID Negative (Negative)
[2020-08-21] MEDS: ACETAMINOPHEN 325 MG TABLET 650 MG PO (20:26)
== END 2020-08-21 22:30 | disposition short-term general hospital (02) ==
PROVIDERS: Emergency Medicine; Emergency Provider Emergency Medicine
DX: S32.401A Unspecified fracture of right acetabulum, initial encounter for closed fracture (principal); I48.0 Paroxysmal atrial fibrillation; I72.3 Aneurysm of iliac artery; I10 Essential (primary) hypertension; J45.909 Unspecified asthma, uncomplicated; E78.5 Hyperlipidemia, unspecified; N28.1 Cyst of kidney, acquired; K40.90 Unilateral inguinal hernia, without obstruction or gangrene, not specified as recurrent; R91.1 Solitary pulmonary nodule; W19.XXXA Unspecified fall, initial encounter; Z20.822 Contact with and (suspected) exposure to COVID-19
CPT/HCPCS: 36415; 51702; 73502; 74177; 80053; 81003; 81015; 82550; 82553; 84484; 85025; 85610; 85730; 86850; 86900; 86901; 87086; 87635; 93005; 93010; 96361; 96374; 99285; 99291; C9803; J3010; Q9967

== ENCOUNTER → 2023-02-26 12:13 | Outpatient (CLI) | payer MEDICARE, SELFPAY ==
--- NOTE | 2023-02-26 12:20 | DI.RAD.S_ITS ---
PROCEDURE: XR HAND RT MIN 3V INDICATIONS: Injury to rt index finger TECHNIQUE: 3 views of the hand(s) acquired. COMPARISON: [facility], , HAND 3V RIGHT, 05/16/2015, 10:25. FINDINGS: Bones: Mildly displaced transverse fracture of the 2nd distal phalanx tuft. The joints are normally aligned. Incidental note of juxta-articular lucencies involving the 3rd PIP joint. Soft tissues: No suspicious soft tissue calcifications. IMPRESSION: 1. Acute mildly displaced 2nd distal phalanx fracture. If there is injury to the nailbed, this should be considered an open fracture. Dictated by: Leslie Moreira M.D. on 02/26/2023 at 14:49 Approved by: Leslie Moreira M.D. on 02/26/2023 at 14:53
== END ==
LOC: RAD 12:19
PROVIDERS: PCP Family Medicine; Referring Provider Physician Assistant; Visit Provider Physician Assistant
DX: S62.630A Displaced fracture of distal phalanx of right index finger, initial encounter for closed fracture (principal); S60.021A Contusion of right index finger without damage to nail, initial encounter; X58.XXXA Exposure to other specified factors, initial encounter
CPT/HCPCS: 73130

== ENCOUNTER → 2023-12-16 08:00 | Outpatient (CLI) | payer OTHER, SELFPAY | PROVIDERS: PCP Family Medicine; Referring Provider Nurse Practitioner Psychiatric/Mental Health; Visit Provider Surgery | DX: L97.812 Non-pressure chronic ulcer of other part of right lower leg with fat layer exposed (principal); L97.822 Non-pressure chronic ulcer of other part of left lower leg with fat layer exposed; I87.2 Venous insufficiency (chronic) (peripheral); R60.0 Localized edema; I10 Essential (primary) hypertension; R73.03 Prediabetes; M06.9 Rheumatoid arthritis, unspecified | CPT/HCPCS: 11042; 87070; 87205; 99203; 99213 ==

== ENCOUNTER → 2023-12-23 08:51 | Outpatient (CLI) | payer OTHER, SELFPAY | PROVIDERS: PCP Family Medicine; Referring Provider Internal Medicine; Visit Provider Surgery | DX: L97.811 Non-pressure chronic ulcer of other part of right lower leg limited to breakdown of skin (principal); L97.812 Non-pressure chronic ulcer of other part of right lower leg with fat layer exposed; L97.822 Non-pressure chronic ulcer of other part of left lower leg with fat layer exposed; I87.2 Venous insufficiency (chronic) (peripheral); R60.0 Localized edema; Z79.01 Long term (current) use of anticoagulants | CPT/HCPCS: 97602; 99213 ==

== ENCOUNTER → 2023-12-30 08:34 | Outpatient (CLI) | payer OTHER, SELFPAY | PROVIDERS: PCP Family Medicine; Referring Provider Internal Medicine; Visit Provider Surgery | DX: I87.2 Venous insufficiency (chronic) (peripheral) (principal); R60.0 Localized edema | CPT/HCPCS: 99212; 99213 ==